=== PATIENT | female | born 1990 | race Caucasian/White ===

== ENCOUNTER → 2021-04-15 13:01 | Outpatient (BNVA) | payer BC, MEDICAID, SELFPAY | PROVIDERS: Family Provider Family Medicine; Visit Provider Obstetrics & Gynecology | DX: O09.93 Supervision of high risk pregnancy, unspecified, third trimester (principal); Z3A.00 Weeks of gestation of pregnancy not specified | CPT/HCPCS: 80307; 81000; 82950; 85027; 87086 ==

== ENCOUNTER → 2021-05-06 14:57 | Outpatient (BNVA) | payer BC, MEDICAID, SELFPAY | PROVIDERS: Family Provider Family Medicine; Visit Provider Obstetrics & Gynecology | DX: Z34.90 Encounter for supervision of normal pregnancy, unspecified, unspecified trimester (principal) | CPT/HCPCS: 81000 ==

== ENCOUNTER → 2021-05-16 13:09 | Outpatient (BNVA) | payer BC, MEDICAID, SELFPAY | PROVIDERS: Family Provider Family Medicine; Visit Provider Nurse Practitioner Women's Health | DX: O09.93 Supervision of high risk pregnancy, unspecified, third trimester (principal); O99.333 Smoking (tobacco) complicating pregnancy, third trimester; O34.219 Maternal care for unspecified type scar from previous cesarean delivery; O09.33 Supervision of pregnancy with insufficient antenatal care, third trimester; F20.9 Schizophrenia, unspecified; Z30.2 Encounter for sterilization | CPT/HCPCS: 81000 ==

== ENCOUNTER → 2021-05-23 13:22 | Outpatient (BNVA) | payer BC, MEDICAID, SELFPAY | PROVIDERS: Family Provider Family Medicine; Visit Provider Obstetrics & Gynecology | DX: O09.33 Supervision of pregnancy with insufficient antenatal care, third trimester (principal) | CPT/HCPCS: 81000; 87081 ==

== ENCOUNTER → 2021-06-02 14:33 | Outpatient (BNVA) | payer BC, MEDICAID, SELFPAY | PROVIDERS: Family Provider Family Medicine; Visit Provider Obstetrics & Gynecology | DX: Z34.80 Encounter for supervision of other normal pregnancy, unspecified trimester (principal); F20.9 Schizophrenia, unspecified | CPT/HCPCS: 81000 ==

== ENCOUNTER 2021-06-12 04:47 | Inpatient (IN) | payer BC, MEDICAID, SELFPAY ==
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
[2021-06-12] VITALS (19 sets, daily range): BP systolic 100–135; BP diastolic 49–88; PULSE 63–94; RESP 16–18; TEMP 36.2–36.6; O2SAT 97–100; BMI 29.4
[2021-06-12 05:39] LABS: Basophils # 0.1 10^3/uL (0.0-0.1); Basophils % 0.4 %; Eosinophils # 0.2 10^3/uL (0.0-0.8); Eosinophils % 1.1 %; Hematocrit 33.2 % (37.0-47.0); Hemoglobin 10.7 g/dL (11.5-15.3); Lymphocytes # 2.5 10^3/uL (0.8-4.8); Lymphocytes % 14.4 %; Mean Corpuscular HGB Conc 32.2 g/dL (30.0-36.0); Mean Corpuscular Hemoglobin 27.7 pg (28.0-34.0); Monocytes % 6.1 %; Neutrophils # 12.91 10^3/uL (1.8-7.7); Neutrophils % 75.6 %; Nucleated Red Blood Cells % 0 %; Platelet Count 312 10^3/cmm (130-400); Red Blood Count 3.86 10^6/uL (4.1-5.3); Red Cell Distribution Width 14.2 % (12.1-15.1); White Blood Count 17.1 10^3/uL (4.0-10.0)
[2021-06-12 11:44] LABS: Amphetamines Screen Urine Negative (Negative); Barbiturates Screen Urine Negative (Negative); Benzodiazepines Screen Urine Negative (Negative); Cocaine Screen Urine Negative (Negative); Opiate Screen Urine Negative (Negative); PCP Screen Urine Negative (Negative); THC Screen Urine Negative (Negative)
[2021-06-12] MEDS: lactated ringers 1,000 ML 999 ML IV (12:05)
[2021-06-12] MEDS: famotidine 20 mg/2 mL INJ IVP (12:43)
[2021-06-12] MEDS: metoclopramide 5 mg/mL SDV 2 mL 10 MG IVP ×2 (12:43→22:43)
[2021-06-12] MEDS: citric acid-sodium citrate 30 mL UDC PO (12:43)
--- NOTE | 2021-06-12 13:14 | PC.NURSE ---
Pt ambulated to OB OR 2. Pt tolerated well.
--- NOTE | 2021-06-12 13:37 | P.ANESUD_ITS ---
Pre-Anesthetic Update Pre-Anesthetic Assessment: Date of Surgery/Procedure: 06/12/21 Preop Daphnie gnosis: cehpalopelvic disproportion Proposed Procedure: Operation Date: 06/12/21 07:00 Proposed Procedures p Section Repeat With Tubal(Not Applicable) - Cristhian Simon MD Any changes to Pre-Anesthetic Assessment?: No Last Intake: Intake Last Liquid Date 06/11/21 Last Liquid Time 22:30 Last Solid Date 06/11/21 Last Solid Time 22:30 Labs Last 48hrs: Laboratory Results - last 48 hr 06/12/21 06/12/21 06/12/21 05:24 05:24 10:45 WBC 17.1 H RBC 3.86 L Hgb 10.7 L Hct 33.2 L MCV 86.0 MCH 27.7 L MCHC 32.2 RDW 14.2 Plt Count 312 MPV 11.0 H Neut % (Auto) 75.6 Lymph % (Auto) 14.4 [place] % (Auto) 6.1 Eos % (Auto) 1.1 Baso % (Auto) 0.4 Neut # (Auto) 12.91 H Lymph # (Auto) 2.5 [place] # (Auto) 1.0 H Eos # (Auto) 0.2 Baso # (Auto) 0.1 Nucleated RBC % (a uto) 0 Nucleated RBCs # 0.0 Urine Opiates Scre en Negative Ur Barbiturates Sc reen Negative Ur Phencyclidine S crn Negative Ur Amphetamines Sc reen Negative U Benzodiazepines Scrn Negative Urine Cocaine Scre en Negative U Marijuana (THC) Screen Negative Blood Type A Positive Rho(D) Type Positive / 4+ Vitals: Pulse Rate 85 06/12/21 12:51 Pulse Rhythm 06/12/21 05:04 Pulse Strength 3+ Normal 06/12/21 05:04 Respiratory Effort Non-Labored 06/12/21 05:04 Respiratory Depth Normal 06/12/21 05:04 Respiratory Patter n 06/12/21 05:04 Blood Pressure 122/58 06/12/21 12:51 Oxygen Delivery Me thod 06/12/21 05:04 Exam: Pre-Anes Outpt Exam: alert, oriented x 3, clear to auscultation bilaterally and regular rate & rhythm Cardiac Studies: No Data to Display
--- NOTE | 2021-06-12 14:29 | P.OP_ITS ---
Operative Report Date of procedure: June 12, 2021 Pre-op Diagnosis: Term , previous delivery, desires sterilization Post-op diagnosis: same Procedure Done: Repeat low transverse delivery Bilateral salpingectomy via fulguration Specimens removed/disposition: Left and right fallopian tubes Surgeon: Cristhian Simon MD Anesthesia: None (Spinal) Estimated blood loss (mL): 800 IV fluids (mL): 1,500 Urine output (mL): 175 Complications: None Findings: Male Apgars 8/9, weight 3544g Condition: stable Disposition: PACU Brief History: Mrs. Cordova 31-year-old female with term at 40 weeks with 2 previous deliveries Procedure: After assuring informed consent, the patient was taken to the operating room and anesthesia was initiated. She was placed in the dorsal supine position with a left lateral tilt. The abdomen was prepped and draped in the usual sterile manner. A time-out procedure was performed. A Pfannenstiel skin incision was made with the scalpel and carried through to the underlying layer of fascia with the Bovie. The fascia was nicked in the midline and the incision extended laterally with the Jade scissors. The superior aspect of the fascial incision was then grasped with Mary clamps and elevated and the underlying rectus muscle dissected off bluntly and sharp with jade scissors dense adhesions. Attention was then turned to the inferior aspect of the incision which, in similar fashion, was grasped and tented up with Mary clamps and the rectus muscle dissected bluntly. The rectus muscles were then in the midline and the peritoneum identified, tented up and entered sharply with Metzenbaum scissors. The peritoneal incision was then extended superiorly and inferiorly with good visualization of the bladder. The Negro O retractor was then inserted and the vesicouterine peritoneum identified, grasped with pickups and entered sharply with Metzenbaum scissors. This incision was then extended laterally and the bladder flap created digitally. The uterus incised in a low transverse fashion with the scalpel. The uterine incision was then extended with the bandage scissors. The was then delivered in the cephalic presentation atraumatically at 1351. The nose and the mouth were suctioned with bulb and the cord clamped and cut. The cord was normal and had three vessels. Amniotic fluid was clear. The placenta was then removed manually and the uterus exteriorized and cleared of all clots and debris. The uterine incision was repaired with 0 Vicryl in a running-locked fashion. A second layer of the same suture was used to obtain excellent hemostasis. The gutters were cleared of all clots. The left fallopian tube was identified and grasped with a Jackson clamp. The tube was then followed out to the fimbria. The fallopian tube and mesosalpinx were grasped and the underlying mesosalpinx was cauterized and cut using the [employer] device. Serial cauterization and cutting was used to separate the fallopian tube from the underlying mesosalpinx until it could be amputated cutting it approximated 2 cm from the cornua. Attention was then turned to the contralateral fallopian tube, which was removed in similar fashion. Both specimens were removed and sent to pathology. Excellent hemostasis was noted. The same procedure was performed on the opposite fallopian tube. Then the uterus was then returned to the abdomen. The rectus muscles were approximated with 3-0 chromic gut. The fascia was reapproximated with 0 Vicryl in an interrupted running fashion. The skin was closed with Insorb?s subcuticular absorbable ayleen. The Pfannenstiel incision was infiltrated with Exparel for pain management. The patient tolerated the procedure well. The sponge, lap and needle counts were correct times three.
--- NOTE | 2021-06-12 14:42 | P.PCN_ITS ---
PACU note PACU note: VSS, Good respiratory effort, report to REGULATORY COORDINATOR Post-Anesthesia Exam: awake
--- NOTE | 2021-06-12 14:42 | PM.PACU ---
PACU note PACU note: VSS, Good respiratory effort, report to MANAGER FINE DINING Post-Anesthesia Exam: awake
--- NOTE | 2021-06-12 15:00 | ANE.PACU2 ---
Inpatient post-anesthesia follow up: Airway intact: Yes Vital signs: Temperature 98.1 F Pulse Rate 83 Respiratory Rate 16 Blood Pressure 109/56 Pulse Oximetry 99 Oxygen Delivery Me thod Room Air Oxygen Flow Rate Fraction of Inspir ed Oxygen Hydration adequate: Yes Nausea and vomiting: No Mental status: Baseline
[2021-06-12] MEDS: HYDROcodone-acetaminophen 5-325 mg Tablet PO (15:49)
[2021-06-12] MEDS: dextrose 5%-lactated ringers 1,000 ML 125 ML IV (16:22)
[2021-06-12] MEDS: TRAMadol 50 mg Tablet PO (17:24)
[2021-06-12 18:05] LABS: Basophils # 0.1 10^3/uL (0.0-0.1); Basophils % 0.4 %; Eosinophils # 0.1 10^3/uL (0.0-0.8); Eosinophils % 0.5 %; Hematocrit 34.9 % (37.0-47.0); Hemoglobin 10.9 g/dL (11.5-15.3); Lymphocytes # 2.1 10^3/uL (0.8-4.8); Lymphocytes % 9.7 %; Mean Corpuscular HGB Conc 31.2 g/dL (30.0-36.0); Mean Corpuscular Hemoglobin 27.5 pg (28.0-34.0); Mean Corpuscular Volume 88.1 fL (81-99); Mean Platelet Volume 11.4 fL (7.4-10.4); Monocytes # 0.8 10^3/uL (0.2-0.9); Monocytes % 3.8 %; Neutrophils # 18.06 10^3/uL (1.8-7.7); Neutrophils % 84.4 %; Nucleated Red Blood Cells % 0 %; Platelet Count 329 10^3/cmm (130-400); Red Blood Count 3.96 10^6/uL (4.1-5.3); Red Cell Distribution Width 14.2 % (12.1-15.1); White Blood Count 21.4 10^3/uL (4.0-10.0)
[2021-06-12] MEDS: ondansetron 2 mg/ML SDV 2 mL 4 MG IVP ×2 (18:21→21:28)
[2021-06-12] MEDS: ketorolac 30 mg/mL INJ IVP (20:14)
[2021-06-12] MEDS: lanolin oint 7 gm 1 APPLIC TOPICAL (20:15)
[2021-06-12] MEDS: nicotine 14 mg Patch 1 PATCH TRANSDERMA (20:15)
[2021-06-13 04:12] LABS: Hematocrit 31.1 % (37.0-47.0); Hemoglobin 9.7 g/dL (11.5-15.3); Mean Corpuscular HGB Conc 31.2 g/dL (30.0-36.0); Mean Corpuscular Hemoglobin 27.5 pg (28.0-34.0); Mean Corpuscular Volume 88.1 fL (81-99); Mean Platelet Volume 11.5 fL (7.4-10.4); Platelet Count 274 10^3/cmm (130-400); Red Blood Count 3.53 10^6/uL (4.1-5.3); Red Cell Distribution Width 14.2 % (12.1-15.1); White Blood Count 14.8 10^3/uL (4.0-10.0)
[2021-06-13 05:23] VITALS: BP 109/56; PULSE 83; RESP 16; TEMP 36.7
[2021-06-13] MEDS: ibuprofen 800 mg tablet PO ×3 (06:18→21:16)
[2021-06-13] MEDS: ferrous sulfate EC 325 mg Tablet PO ×2 (08:45→18:18)
[2021-06-13] MEDS: BuSPIRONE 10 mg Tablet 20 MG PO ×2 (08:46→18:19)
[2021-06-13] MEDS: prenatal vitamin Capsule 1 CAP PO (08:46)
[2021-06-13] MEDS: docusate sodium 100 mg Capsule PO ×2 (08:46→18:19)
[2021-06-13] MEDS: lamoTRIgine 25 mg Tablet PO ×2 (08:46→18:19)
[2021-06-13] MEDS: valACYclovir 1,000 mg Tablet 1000 MG PO ×2 (08:47→18:20)
[2021-06-13 10:30] VITALS: BP 124/78; PULSE 74; RESP 16; TEMP 36.6; O2SAT 100
[2021-06-13] MEDS: HYDROcodone-acetaminophen 5-325 mg Tablet PO ×3 (11:51→21:52)
--- NOTE | 2021-06-13 12:48 | PC.NURSE ---
Pt reports her nicotine patch came off at 11 last night. This nurse found patch stuck to arm of chair. Pt requests another patch or to go outside to smoke. This nurse discussed with pt that because she has an IV she will not be able to leave the floor. Since the nicotine patch was only on for around 3 hours, this nurse administered another 14 mg Nicotine patch to pts right shoulder blade at 1245.
--- NOTE | 2021-06-13 12:49 | PM.OBGYPN ---
PRECISION INSPECTOR Subjective Subjective: Interval history: Mrs. Cordova 31-year-old female G3, P2 with EGA at 40 weeks admitted for repeat delivery. Refers doing well Labor: Amniotic Membrane Status: Intact Monitor Mode: External Contraction Pattern: Rare Vitals/I&O/Wt Last Vital Signs Temp 98.5 F 06/14/21 09:18 Pulse 74 06/14/21 09:18 Resp 18 06/14/21 09:18 BP 109/67 06/14/21 09:18 Pulse Ox 96 06/14/21 09:18 Physical Exam Narrative: EXAM NARRATIVE: GA; alert and oriented x 3 HEENT: normal Breasts: engorged Nipples - skin intact Lungs; clear to auscultation Heart: regular rhythm, no murmurs. Abd: Appropriately tender. BS+. Uterine fundus below umbilicus. No Fundal Tenderness. Perineum: normal lochia. Extremities: no edema, no cyanosis, no tenderness. Urinary Catheter Management^: Lieberman: Cath Placed During This Visit: yes, but has since been removed by the nurse Reason for Continuing Indwelling Catheter: Perioperative Use in Selected Surgeries Urinary Catheter Date of Insertion: 06/12/21 Urinary Catheter Time of Insertion: 13:32 Date Urinary Catheter Removed: 06/13/21 Time Urinary Catheter Discontinued: 06:45 Data : 06/13/21 03:45 A&P Assessment and plan (1) Status post delivery: Mrs. Cordova is status post repeat delivery and bilateral tubal salpingectomy sterilization postoperative day 1. She is afebrile and hemodynamically stable. Tolerating diet well. Ambulating without difficulty. Passing flatus. Status: Acute Attestations Medical Necessity Statement*: In my professional opinion per admitting diagnosis. Coding Level of Care Code Acute Workers Compensation Claims Assistant for Chg Fwd Diagnoses Status post delivery Z98.891
[2021-06-13] MEDS: ondansetron 2 mg/ML SDV 2 mL 4 MG IVP (14:32)
[2021-06-13 18:21] VITALS: BP 119/58; PULSE 70; RESP 16; TEMP 36.6; O2SAT 98
[2021-06-13 21:14] VITALS: BP 124/74; PULSE 71; RESP 17; TEMP 36.8; O2SAT 98
[2021-06-13] MEDS: hyDROXYzine 25 mg Capsule 50 MG PO (22:58)
[2021-06-14] MEDS: HYDROcodone-acetaminophen 5-325 mg Tablet PO ×3 (01:59→12:11)
[2021-06-14 04:00] VITALS: BP 110/73; PULSE 67; RESP 17; TEMP 36.9; O2SAT 97
[2021-06-14] MEDS: prenatal vitamin Capsule 1 CAP PO (07:57)
[2021-06-14] MEDS: BuSPIRONE 10 mg Tablet 20 MG PO (09:12)
[2021-06-14] MEDS: docusate sodium 100 mg Capsule PO (09:12)
[2021-06-14] MEDS: ibuprofen 800 mg tablet PO (09:13)
[2021-06-14] MEDS: lamoTRIgine 25 mg Tablet PO (09:13)
[2021-06-14] MEDS: valACYclovir 1,000 mg Tablet 1000 MG PO (09:13)
[2021-06-14 09:18] VITALS: BP 109/67; PULSE 74; RESP 18; TEMP 36.9; O2SAT 96
--- NOTE | 2021-06-14 10:40 | PM.OBGYDC ---
Discharge Providers BIOMASS POWER PLANT SUPERINTENDENT Date of Admission: 06/12/21 04:47 Date of Discharge: 06/14/21 Attending Provider at Admission: Cristhian Simon MD Attending Provider at Discharge: Cristhian Simon MD Reason for Visit Reason for Visit: pavan 06/11/21 Hospital Course Hospital Course Ms. Cordova is a 31 y/o with an uncertain LMP and PAVAN of 06/18/2021 based on second trimester ultrasound admitted for repeat cesarena delivery and sterilization at 40 weeks. The procedures were performed without complications. Post op observation recovery was uneventful. She is tolerating diet well. Ambulating without difficulty. Incision clean and dry. Passing flatus. She is afebrile and hemodynamically stable. Information Peripartum Data: Infant Delivery Method: Physical Exam Narrative: EXAM NARRATIVE: GA: Alert and oriented ?3. HEENT: WNL. Heart: Regular rate and rhythm. Breasts: engorged Nipples - skin intact Lungs: Clear to auscultation bilaterally. Abdomen: Bowel sounds present, nontender, minimal tenderness, incision clean and dry, no redness, pain or edema. BOARD CERTIFIED ORTHODONTIST: normal lochia. Extremities: No edema, no cyanosis, no calves pain. Urinary Catheter Management^: Lieberman: Cath Placed During This Visit: yes, but has since been removed by the nurse Reason for Continuing Indwelling Catheter: Perioperative Use in Selected Surgeries Urinary Catheter Date of Insertion: 06/12/21 Urinary Catheter Time of Insertion: 13:32 Date Urinary Catheter Removed: 06/13/21 Time Urinary Catheter Discontinued: 06:45 Discharge Data Vitals: Last Vital Signs Temp 98.5 F 06/14/21 09:18 Pulse 74 06/14/21 09:18 Resp 18 06/14/21 09:18 BP 109/67 06/14/21 09:18 Pulse Ox 96 06/14/21 09:18 Discharge Plan Discharge Patient Disposition: Home Condition: Stable Prescriptions: New hydrocodone-acetaminophen 5-325 mg tablet 1 tab PO Q4H PRN (Reason: pain) Qty: 30 RF: 0 acetaminophen 325 mg capsule 325 mg PO Q4H PRN (Reason: fever or pain) Qty: 60 RF: 0 docusate sodium [Colace] 100 mg capsule 100 mg PO BID Qty: 60 RF: 0 ferrous sulfate [Iron (ferrous sulfate)] 325 mg (65 mg iron) tablet 325 mg PO BID Qty: 60 RF: 0 ibuprofen 800 mg tablet 800 mg PO TID PRN (Reason: pain) Qty: 60 RF: 0 Continued valacyclovir [Valtrex] 1 gram tablet 1,000 mg PO DAILY RF: 0 buspirone 10 mg tablet 20 mg PO BID RF: 0 lamotrigine 25 mg tablet 25 mg PO BID RF: 0 prenat.vits,mike,[id number] Tablet 1 tab PO DAILY RF: 0 Discharge Orders: Discharge Order (Routine); Ordered 06/14/21 Ordered By: Cristhian Simon Referrals: Cristhian Simon MD [Physician] - 2 weeks (c/s incision check) Discharge Diet: Usual diet Discharge Activity: Increase activity as tolerated Patient Instructions: Section (DC), Depression (GEN), Sponge Bathing Your Baby (GEN), Tub Bathing Your Baby (GEN), Your Bynum's Appearance (GEN), Caring for Your Baby (GEN), Breast Care for the Breast Feeding Mother (GEN), Sudden Syndrome (GEN), Caring for Your Breastfed Baby (GEN), Wound Dehiscence (GEN), Postoperative Bleeding (GEN), Bleeding (GEN), OB Discharge Report, OB Care at Home, Opioid Safety, OB Home Care, Female Sterilization Activity Restrictions/Additional Instructions: 1. Please call [facility] [place] [facility] on next working day to make your post-operative appointment in 2 weeks. 2. Please stay home until you come back to the clinic on first post-operative check up. 3. Please follow instructions on your medications CAREFULLY. 4. If you have abdominal incision, do not cover it unless dressing is necessary because of drainage. OK to shower, but avoid bath. Leave steri-strips until they fall off. If they are still on one week after surgery, you may remove them. 5. If you had vaginal surgery or vaginal repair, Dr. Simon may instruct you to take SITZ bath. 6. Yellow, blood tinged odorous vaginal discharge is usually normal after hysterectomy or vaginal surgeries. 7. No sexual intercourse, tampons, or douches until you are completely released from the post-operative care. 8. Avoid constipation by eating right and maybe using some Metamucil or Milk of Magnesia. 9. All prescription refills are given during the working hours. Please do no wait till it runs out. Call the clinic at [phone] before your medication runs out. The clinic will get in touch with your doctor to prescribe medications if necessary. 10. Please remain within 40 mile radius from our hospital because emergencies do happen now and then during the post-operative period. 11. If you have stairs at home, take one step at a time slowly and minimize the number of trips. It helps to stay in one floor for the next few days. No lifting except what you can lift by one hand until you are released from the post-operative care. 12. Driving is discouraged until you are well healed. It may be 3-4 weeks before you feel strong enough to drive. You should be able to turn and look through the rear window without pain and you should be able to push the brake pedal very hard without pain before you drive. No fast rules, but SAFETY should be your primary concern. DO NOT drive if you are on sedating medications such as narcotics. 13. Call the clinic (during working hours) to make urgent appointment or go to the Emergency room, if any of the following occurs: i. Vaginal bleeding becomes heavy, more than a period. ii. Incision becomes red and sore, or drains pus. iii. Your temperature is over 100.4 or you have chill. iv. IV site becomes red and swollen (a little ``knot?? is usually OK) v. Persistent nausea and vomiting vi. Persistent constipation or diarrhea vii. Rash or allergic reaction to medications. Discharge Attestations BIOMASS POWER PLANT SUPERINTENDENT Time Spent in Discharge Care*: greater than 30 min Coding Level of Care Code Acute Marketing Automation Specialist for Sheri Zapata
--- NOTE | 2021-06-14 12:57 | PC.NURSE ---
THIS SUPPORTIVE EMPLOYMENT CASE MANAGER CALLED [facility] AND THEY TOLD US THAT THEY CLOSE AT 1, I WAS ON SPEAKER PHONE AND THE PATIENT SAID THAT SHE WOULD TRY AND GET SOMEONE OVER TO PICK THEM UP BUT EVEN AFTER ASKING THEY WERE NOT WILLING TO STAY OPEN PAST 1 FOR THEM.
--- NOTE | 2021-06-14 13:00 | PC.NURSE ---
1250 THIS CLINICAL EDUCATION ASSISTANT HAD TOLD THEM WHEN THEY GOT BABY IN [place] TO PUT RDA LIGHT AND THAT SHE WOULD COME ESCORT THEM OUT. THIS CLINICAL EDUCATION ASSISTANT WAS HELPING A PATIENT AT THE MAIN DESK AND TRYING TO LET SCREEN TWO GENTLEMAN IN AND THEY LEFT CARRYING BABY IN CARSEAT. THIS CLINICAL EDUCATION ASSISTANT DID NOT TRY TO STOP THEM BECAUSE I THOUGHT THAT HER NURSE HAD OK'D THEM FOR DISCHARGE. THIS CLINICAL EDUCATION ASSISTANT DID GO OVER HOME CARE INSTRUCITONS WITH THEM PRIOR TO THEM WALKING OUT.
--- NOTE | 2021-06-16 16:55 | PC.RESP ---
Smoking Cessation information sent to patient.
== END 2021-06-14 12:50 | disposition home or self-care (01) | DRG 785 ==
PROVIDERS: Admitting Provider Obstetrics & Gynecology; Visit Provider Obstetrics & Gynecology
PROC: 10D00Z1 Extraction of Products of Conception, Low, Open Approach (ICD-10-PCS; CPT 59514; principal; 2021-06-12 07:00)
DX: O34.211 Maternal care for low transverse scar from previous cesarean delivery (principal); O99.334 Smoking (tobacco) complicating childbirth; F17.210 Nicotine dependence, cigarettes, uncomplicated; O99.344 Other mental disorders complicating childbirth; F20.9 Schizophrenia, unspecified; Z30.2 Encounter for sterilization; Z3A.40 40 weeks gestation of pregnancy; Z37.0 Single live birth
CPT/HCPCS: 36415; 51702; 58611; 59025; 59409; 80306; 81000; 85025; 85027; 86900; 87635; 88302; 96372; 96374; 96375; C9290; J0690; J1885; J2274; J2405; J2765; J3010; J3490; J7030

== ENCOUNTER 2021-10-21 16:45 | Emergency (ER) | payer BC, MEDICAID, SELFPAY ==
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
[2021-10-21 18:24] VITALS: BP 114/71; PULSE 71; RESP 18; TEMP 36.7; O2SAT 100; BMI 23.3
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
[2021-10-21 19:17] VITALS: RESP 21
[2021-10-21 19:21] LABS: Basophils # 0.1 10^3/uL (0.0-0.1); Basophils % 0.6 %; Eosinophils # 0.2 10^3/uL (0.0-0.8); Hematocrit 38.3 % (37.0-47.0); Hemoglobin 12.5 g/dL (11.5-15.3); Lymphocytes # 2.7 10^3/uL (0.8-4.8); Lymphocytes % 27.8 %; Mean Corpuscular HGB Conc 32.6 g/dL (30.0-36.0); Mean Corpuscular Volume 88.9 fl (81-99); Mean Platelet Volume 10.9 fL (7.4-10.4); Monocytes # 0.7 10^3/uL (0.2-0.9); Monocytes % 7.2 %; Neutrophils # 5.98 10^3/uL (1.8-7.7); Neutrophils % 62.1 %; Nucleated Red Blood Cells % 0 %; Platelet Count 340 10^3/cmm (130-400); Red Blood Count 4.31 10^6/uL (4.1-5.3); White Blood Count 9.6 10^3/uL (4.0-10.0)
[2021-10-21] MEDS: HYDROcodone-acetaminophen 7.5-325 mg Tablet 1 TAB PO (19:26)
[2021-10-21] MEDS: metroNIDAZOLE 500 MG Tablet 2000 MG PO (19:30)
[2021-10-21] MEDS: ondansetron 2 mg/ML SDV 2 mL 4 MG IVP (19:30)
[2021-10-21 19:38] LABS: Alanine Aminotransferase 13 U/L (0-33); Albumin Level 4.1 g/dL (3.5-5.2); Alkaline Phosphatase 68 IU/L (35-105); Anion Gap 16.2 (5-19); Aspartate Amino Transferase 11 U/L (0-32); Blood Urea Nitrogen 11 mg/dL (6-20); Calcium 8.6 mg/dL (8.5-10.5); Carbon Dioxide 22 mmol/L (22-29); Chloride 107 mmol/L (98-107); Glomerular Filtration Rate 117.4 mL/min (90-130); Glucose 86 mg/dL (65-115); Osmolality Calculated 291 mOsm/kg (285-295); Potassium 4.2 mmol/L (3.5-5.1); Sodium 141 mmol/L (136-145); Total Bilirubin 0.2 mg/dL (0.15-1.2); Total Protein 6.1 g/dL (6.6-8.7)
[2021-10-21] MEDS: iohexol 300 mg/mL 100 mL Btl IV (19:41)
[2021-10-21 20:06] LABS: Add Urine Microscopic? NO; Charge for UA Resulting for Rev
[2021-10-21 20:10] LABS: Bilirubin Urine Neg (Negative); Blood Urine Neg (Negative); Glucose Urine UA Norm (Normal); Ketones Urine Negative (Negative); Leukocyte Esterase Urine Negative (Negative); Nitrate Urine Negative (Negative); Protein Urine Neg (Negative); Specific Gravity, Urine 1.005 (1.005-1.030); Urine Appearance Clear (CLEAR); Urine Color Straw (Yellow); Urobilinogen Urine Norm (Negative); pH Urine 7 (5-7)
[2021-10-21 20:27] VITALS: BP 111/54; PULSE 74; RESP 17; O2SAT 97
[2021-10-21 20:54] VITALS: BP 105/66; PULSE 78; O2SAT 98
[2021-10-21 21:17] VITALS: BP 104/79; PULSE 73; RESP 18; O2SAT 95
== END 2021-10-21 21:19 | disposition home or self-care (01) ==
PROVIDERS: Emergency Provider Emergency Medicine; PCP Family Medicine
DX: T74.21XA Adult sexual abuse, confirmed, initial encounter (principal); F17.210 Nicotine dependence, cigarettes, uncomplicated
CPT/HCPCS: 74177; 80053; 81003; 85025; 87210; 87491; 87591; 96374; 99284; J0696; J2405; Q9967

== ENCOUNTER 2025-05-22 15:55 | Emergency (ER) | payer MEDICAID, SELFPAY ==
--- OUTSIDE RECORDS SUMMARY | 2022-10-24 07:00 | XMS_ITS | Continuity of Care Document ---
Author Organization [facility] Address [id number] [address] Phone Care Team Providers Care Cash Register Mechanic Name Role Phone Pepito Quinn DDS Unavailable Allergies, Adverse Reactions, Alerts Substance Reaction Status Criticality azithromycin Active No Information Medications Medication Instructions Dosage Effective Dates (start - stop) Status Comments LAMOTRIGINE (unknown strength) take 1 tablet by oral route every day Not Available - Active PROPRANOLOL HCL (unknown strength) take 1 tablet by oral route 3 times every day Not Available - Active ABILIFY (unknown strength) take 1 tablet by oral route every day Not Available - Active amoxicillin 500 mg capsule take 1 capsule by oral route every 8 hours 500 MG - Active Procedures Procedure Date Limited Oral Evaluation Problem Focused Intraoral Periapical First Film Extraction, Erupted Tooth Or Exposed Missy t (Elevati Advance Directives Directive Yes / No Effective Date File Name No Information Encounters Encounter Description Practice Location Reason(s) For Visit Diagnoses Date Provider Providers Copied on Encounter [facility], [id number], [id number], [place] tel:[phone] [facility] No Information Cheyenne Beyer. [address], [place], [id number], [place]. tel:[phone] Referring Provider: Pepito Quinn, [address] [place], [address]. tel:[phone] Family History Family Member Type Diagnosis Age At Onset No Information Payers Payer name Insurance type Covered republican ID Abebe escalona(leif aMry [id number] Social History Type Description Quantity Date Captured Comments Alcohol Use Details No Caffeine Use Details Unknown Tobacco Use Status Moderate cigarette smoker (10-19 cigs/day) Smoking Status Heavy tobacco smoker Smoking Tobacco Use Details Cigarette: No Details Available Cigarette: 0.5 Packs per day Sex Female Gender Identity Female Chief Complaint And Reason For Visit No Information Reason For Referral Reason For Referral No Information History Of Present Illness Encounter Date Complaint History Of Prese nt Illness No Information Functional Status Date Functional Assessmen t No Information Instructions Date Instruction Additional Infor mation No Information Assessments Type Assessment Date No Information Patient Care Teams Name Effective Dates (start - stop) Status Members No Information
--- OUTSIDE RECORDS SUMMARY | 2025-02-08 10:30 | XMS_ITS ---
Author Organization [facility] Address [address] [place] [address] Care Team Providers Care Quality Liaison Name Role Phone David Jesusi Bhumi [phone] REASON FOR VISIT 1 month f/u Social History Sex Assigned At : Social History Observation Description Sex Assigned At Female Encounters Encounter Location Date Provider Diagnosis [facility] [address] [address] 02/08/2025 Miri Jesus Plan Of Treatment No Information Progress Notes * Elen CORDOVA DDOB:[birth year] (35 yo F)Acc No.[id number]:02/08/2025 Patient: Heather Elen COCHRAN Provider: Umberto Jesus :1990 A ge:34 Y S ex:Female Date:02/08/2025 Address:[address] [place], [place] [address] Subjective: * Chief Complaints: * 1 . 1 month f/u. * Medical History: Objective: * Vitals: Assessment: Plan: * Treatment: * Billing Information: * Visit Code: * Procedure Codes: * Electronic signature of MARIA LUZ Lee iCM on 05/22/2025 at 04:11 PM CDT Sign off status: Pending * Provider: Umberto Jesus Date: 02/08/2025 Generated for Teresita byrd/Tirso/eTransmitting on: 05/22/2025 04:11 PM CDT
--- OUTSIDE RECORDS SUMMARY | 2025-02-19 09:50 | XMS_ITS ---
Author Organization [facility] Address [address] [place] [address] Care Team Providers Care Helper Metal Hanging Name Role Phone Miri Jesus [phone] REASON FOR VISIT needs psych meds refilled Social History Sex Assigned At : Social History Observation Description Sex Assigned At Female Encounters Encounter Location Date Provider Diagnosis [facility] [address] [address] 02/19/2025 Miri Jesus Plan Of Treatment No Information Progress Notes * Elen CORDOVA DDOB:[birth year] (35 yo F)Acc No.[id number]:02/19/2025 Patient: Heather Elen COCHRAN Provider: Umberto Jesus :1990 A ge:34 Y S ex:Female Date:02/19/2025 Address:[address] [place], [place] [id number] Subjective: * Chief Complaints: * 1 . Needs psych meds refilled. * Medical History: Objective: * Vitals: Assessment: Plan: * Treatment: * Billing Information: * Visit Code: * Procedure Codes: * Electronic signature of ALIYA Lee i on 05/22/2025 at 04:11 PM CDT Sign off status: Pending * Provider: Umberto Jesus Date: 0 02/19/2025 Generated for Teresita byrd/Tirso/eTransmitting on: 05/22/2025 04:11 PM CDT
[2025-05-22 15:55] VITALS: PULSE 101; RESP 16; TEMP 37.2; O2SAT 96
--- OUTSIDE RECORDS SUMMARY | 2025-05-22 16:11 | XMS_ITS | Encounter Summary ---
Author Organization [facility] Address [address] [place] [address] Care Team Providers Care Clinical Trainer Name Role Phone Unavailable Primary Care Provider Unavailabl e Encounter Details Date Type Department Care Team (Latest Contact Info) Description 09/02/2004 Outpatient Historical [facility] Pediatric Neurology[facility] [address] [place] [address] [place] [address] [facility] [address] [place] [address] ATTN DEFICIT W HYPERACT (Primary Dx) Social History Tobacco Use Types Packs/Day Years Used Date Smoking Tobacco: Never Assessed Comments Unknown Sex and Gender Information Value Date Recorded Sex Assigned at Not on file 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
--- OUTSIDE RECORDS SUMMARY | 2025-05-22 16:11 | XMS_ITS | Encounter Summary ---
Author Organization [facility] Address [address] [place] [address] Care Team Providers Care Farm Management Agent Name Role Phone Unavailable Primary Care Provider Unavailabl e Encounter Details Date Type Department Care Team (Latest Contact Info) Description 12/24/2003 Outpatient Historical [facility] Pediatric Neurology[facility] [address] [place] [address] [place] [address] [facility] [address] [place] [address] TENSION HEADACHE (Primary Dx); ATTN DEFICIT W HYPERACT Social History Tobacco Use Types Packs/Day Years Used Date Smoking Tobacco: Never Assessed Comments Unknown Sex and Gender Information Value Date Recorded Sex Assigned at Not on file 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
--- OUTSIDE RECORDS SUMMARY | 2025-05-22 16:11 | XMS_ITS | Clinical Summary ---
Author Organization [facility] Address [address] [place]: Epic Prelude ADT [place] [address] Care Team Providers Care Cargo And Container Inspector Name Role Phone Unavailable Primary Care Provider Unavailabl e Immunizations Immunization Administration Dates Next Due (M-M-R II/PRIORIX)(12 MO UP) MEASLES, MUMPS AND RUBELLA VIRUS VACCINE, 0.5 ML IM/SUBCUT 11/03/1995,02/12/1993 Dt Dtp Dtap Vaccine 11/03/1995, 4,05/14/1993,1992,1991 HIB, Unspecified Formulation 02/12/1993,06/29/19 91 Hepatitis B Vaccine 07/03/1996,01/03/1996,1994 IPV/OPV 11/03/1995, 4,02/12/1993,1990 Social History Tobacco Use Types Packs/Day Years Used Date Smoking Tobacco: Never Assessed Comments Unknown Sex and Gender Information Value Date Recorded Sex Assigned at Not on file 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
--- OUTSIDE RECORDS SUMMARY | 2025-05-22 16:11 | XMS_ITS | Encounter Summary ---
Author Organization [facility] Address [address] [place] [address] Care Team Providers Care Insulation Cutter And Former Name Role Phone Unavailable Primary Care Provider Unavailabl e Reason for Visit * Reason Comments Office Visit: Converted Data Conversion Encounter Details Date Type Department Care Team (Late st Contact Info) Description 05/16/2024 [facility] [address] [place] [address] Default, Jvc Provider [place] Social History Tobacco Use Types Packs/Day Years Used Date Smoking Tobacco: Never Assessed Social Connections Answer Date Recorded Social Connections and Isolation 0 03/01/2024 Financial Resource Strain Answer Date R ecorded Financial Resource Strain 0 2023 Stress Answer Date Recorded Stress 0 03/01/2024 Physical Activity Answer Date Recorded Physical Activity 0 03/01/2024 Food Insecurity Answer Date Recorded Food 0 03/01/2024 Transportation Needs Answer Date Record ed Transportation 0 03/01/2024 Housing Stability Answer Date Recorded Housing 0 03/01/2024 Safety and Environment Answer Date Sonido rded Safety 0 03/01/2024 Utilities Answer Date Recorded Utilities 0 03/01/2024 Employment Answer Date Recorded Employment 0 03/01/2024 Comments Unknown Sex and Gender Information Value Date Recorded Sex Assigned at Not on file Legal Sex Female 5:33 PM PDT Gender Identity Female 04/28/2024 4:32 PM PDT Sexual Orientation Not on file documented as of this encounter Plan of Treatment Not on file documented as of this encounter Visit Diagnoses Not on filedocumented in this encounter
--- OUTSIDE RECORDS SUMMARY | 2025-05-22 16:11 | XMS_ITS | Encounter Summary ---
Author Organization [facility] Address [address] [place] [address] Care Team Providers Care Digital Strategy Director Name Role Phone Unavailable Primary Care Provider Unavailabl e Encounter Details Date Type Department Care Team (Latest Contact Info) Description 02/25/2004 Outpatient Historical [facility] Pediatric Neurology[facility] [address] [place] [address] [place] [address] 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
--- OUTSIDE RECORDS SUMMARY | 2025-05-22 16:11 | XMS_ITS | Patient Health Record ---
Author Organization [facility] Address [address] [address] Care Team Providers Care Model Maker Firearms Name Role Phone Miri Jesus Unavailable [phone] Allergies Allergen (clinical drug ingredient) Drug/Non Drug Allergy documented on EMR Reaction Allergy Type Onset Date Status azithromycin Azithromycin anaphylaxis Drug Allergy Active lactose Lactose (Intolerance) stomach upset Drug Allergy Active Reason For Referral Reason consult please Diagnosis 1 Borderline personali ty disorder (F60.3) [facility] Referring Provider First Name Miri Referring Provider Last Name Referring Provider [facility] Referred Provider KELLY CAIN General Notes Sharron Magallanes 2024 04:05:15 PM >Insurance card attached. Referral faxed.Elpidio Wendy 02/05/2025 03:38:14 PM >Attempt TC to [facility]. Left message to return my call., Sharron Magallanes 02/15/2025 11:51:29 AM >TC to [facility]. Was told they've left messages 3-4 times, also speaking w/ pt's spouse and leaving a message; no returned call., Attempt TC to pt. Left message w/ their telephone number., Closing referral. Referral Priority Routine Medications Medication SIG (Take, Route, Frequency, Duration) Notes Start Date End Date Status hydrOXYzine HCl 50 MG 1 tablet as needed Orally every 6 hours; Duration: 30 days As needed Not-Taking traZODone HCl 50 MG 1 tablet at bedtime as needed Orally Once a day; Duration: 30 days Active Ibuprofen 200 MG 2 tablets Orally twice daily As needed Not-Taking busPIRone HCl 10 MG 2 tablets Orally thr ee times a day; Duration: 30 days Active Albuterol Sulfate (2.5 MG/3ML) 0.083% 3 mL as needed Inhalation every 6 hrs NotSarina hernández lamoTRIgine 100 MG 1/2 tablet Orally tw ice a day; Duration: 30 days Active ARIPiprazole 5 MG 1 tablet Orally Once a day; Duration: 30 days Active Omeprazole 20 MG 1 capsule 1/2 to 1 h our before morning meal Orally Once a day as needed; Duration: 30 days Not-Taking Citalopram Hydrobromide 20 MG 1 tablet Orally Once a day; Duration: 30 days Active Nicotine 21 MG/24HR 1 patch to skin Transdermal Once a day Not-Estela hernández Social History Tobacco Use: Social History Observation Description Date Details (start date - stop date) Current Smoker NA - NA Sex Assigned At : Social History Observation Description Sex Assigned At Female Tobacco Use/Smoking Question Answer Notes Tobacco use: current smoker How often do you smoke cigarettes? every day How many cigarettes a day do you smoke? 5 or les s How soon after you wake up do you smoke your fir st cigarette? within 5 minutes Are you interested in quitting? Ready to quit Problems Problem Type SNOMED Code ICD Code Onset Dates Problem Status W/U Status Risk Notes Problem Generalized anxiety disorder (38896715) Generalized anxiety disorder (F41.1) Active confirmed Problem Borderline personality disorder (90795320) Borderline personality disorder (F60.3) Active confirmed Problem Posttraumatic stress disorder (24167721) PTSD (post-traumatic stress disorder) (F43.10) Active confirmed Vital Signs Heart Rate 71 /min 01/08/2025 Temperature 97.5 degrees Fahrenheit 01/08/2025 Height-cm 165.1 cm 01/08/2025 Blood pressure diastolic 74 mm Hg 01/08/2025 Oximetry 97 % 01/08/2025 Weight-kg 64.5 kg 01/08/2025 Height 65 in 01/08/2025 Blood pressure systolic 130 mm Hg 01/08/2025 Weight 142.2 lbs 01/08/2025 BMI 23.66 kg/m2 01/08/2025 Encounters Encounter Location Date Provider Diagnosis Formerly [facility] [address] [place] [id number] 08/22/2024 Miri Jesus PTSD (post-traumatic stress disorder) F43.10 ; Borderline personality disorder F60.3 ; Major depressive disorder, remission status unspecified, unspecified whether recurrent F32.9 ; Schizophrenia, unspecified type F20.9 and Generalized anxiety disorder F41.[address] [address] 12/11/2024 Mirijitendra Jesus PTSD (post-traumatic stress disorder) F43.10 ; Borderline personality disorder F60.3 ; Major depressive disorder, remission status unspecified, unspecified whether recurrent F32.9 ; Schizophrenia, unspecified type F20.9 and Generalized anxiety disorder F41.[address] [address] 01/08/2025 Miri Jesus PTSD (post-traumatic stress disorder) F43.10 ; Borderline personality disorder F60.3 ; Major depressive disorder, remission status unspecified, unspecified whether recurrent F32.9 ; Schizophrenia, unspecified type F20.9 and Generalized anxiety disorder F41.[address] [address] 08/18/2024 Miri [place] [address] [address] 12/13/2024 Miri Assessments Encounter Date Diagnosis (ICD Code) Assessment Notes Treatment Notes Treatment Clinical Notes Section Notes 08/22/2024 Borderline personality disorder (ICD-10 - F60.3) 08/22/2024 PTSD (post-traumatic stress disorder) (ICD-10 - F43.10) 12/11/2024 PTSD (post-traumatic stress disorder) (ICD-10 - F43.10) 01/08/2025 PTSD (post-traumatic stress disorder) (ICD-10 - F43.10) 12/11/2024 Borderline personality disorder (ICD-10 - F60.3) 01/08/2025 Borderline personality disorder (ICD-10 - F60.3) 08/22/2024 Major depressive disorder, remission status unspecified, unspecified whether recurrent (ICD-10 - F32.9) 08/22/2024 Schizophrenia, unspecified type (ICD-10 - F20.9) 12/11/2024 Major depressive disorder, remission status unspecified, unspecified whether recurrent (ICD-10 - F32.9) 01/08/2025 Major depressive disorder, remission status unspecified, unspecified whether recurrent (ICD-10 - F32.9) 01/08/2025 Schizophrenia, unspecified type (ICD-10 - F20.9) 08/22/2024 Generalized anxiety disorder (ICD-10 - F41.1) 12/11/2024 Schizophrenia, unspecified type (ICD-10 - F20.9) 01/08/2025 Generalized anxiety disorder (ICD-10 - F41.1) 12/11/2024 Generalized anxiety disorder (ICD-10 - F41.1) 08/22/2024 Other follow up with [facility] 12/11/2024 Other I recommend she returns to the [facility] [place]. 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 01/08/2025 Other continue counseling with Varinder Matthew Plan Of Treatment No Information Insurance Providers Payer Name Payer Address Payer Phone Subscriber Number Group Number Insured Name Patient Relationship to Insured Coverage Start Date Coverage End Date [facility] [address] [place] [phone] [id number] Elen Medrano Self - patient is the insured Medical (General) History Medical History History ICD Code Chronic PTSD Borderline Personality Disorder Major depressive disorder Schizophrenia Generalized Anxiety Disorder Insomnia H/O gastic ulcers Nicotine dependance Hospitalization History Reason Date(Month/Year) [facility] (numerous times) [phone] [facility] 07/2024 [facility] 08/2024
--- OUTSIDE RECORDS SUMMARY | 2025-05-22 16:11 | XMS_ITS | Clinical Summary ---
Author Organization [facility] Address [address] [place] [address] Care Team Providers Care Welder Railcar Mechanic Name Role Phone Unavailable Primary Care Provider Unavailabl e Source Comments PLEASE NOTE, if this patient is a minor, it may be UNLAWFUL to discuss sensitive information that is contained in these records (such as FAMILY PLANNING, MENTAL HEALTH or SUBSTANCE ABUSE) with the minor patient's parent or other person without the patient's specific authorization.[facility] Allergies Active Allergy Reactions Criticality Noted Date Comments Azithromycin 10/24/2022 Social History Tobacco Use Types Packs/Day Years Used Date Smoking Tobacco: Never Assessed Social Connections Answer Date Recorded Connectedness 0 07/24/2024 Financial Resource Strain Answer Date R ecorded Financial Resource Strain 0 2023 Stress Answer Date Recorded Stress 0 03/01/2024 Physical Activity Answer Date Recorded Physical Activity 0 03/01/2024 Food Insecurity Answer Date Recorded Food 0 08/03/2024 Transportation Needs Answer Date Record ed Transportation 0 03/01/2024 Housing Stability Answer Date Recorded Housing 0 03/01/2024 Safety and Environment Answer Date Sonido rded Safety 0 03/01/2024 Utilities Answer Date Recorded Utilities 0 03/01/2024 Employment Answer Date Recorded Stress 0 07/24/2024 Comments Unknown Sex and Gender Information Value Date Recorded Sex Assigned at Not on file Legal Sex Female 5:33 PM PDT Gender Identity Female 04/28/2024 4:32 PM PDT Sexual Orientation Not on file Plan of Treatment Health Maintenance Due Date Last Done Comments Anxiety Screening 1991 HPV Screening 1991 Hepatitis C Screening 1991 Pap + HPV 1991 Tobacco Screening 1991 HIV Screening 2006 Relationship Safety Screening/Counseling 2006 Hypertension Screening (#1) 2009 Imm-DTaP/Tdap/Td (1 - Tdap) 2010 Imm-Hepatitis B (1 of 3 - 19+ 3-dose series) 0 Cervical Cancer Screening 02/22/2012 Pap Smear 02/22/2012 Les-SDEKS-05 (2023- season) 2024 Alcohol and Drug Screen 11/08/2024 Depression Annual Screen 11/08/2024 Imm-Influenza (#1) 2025 Cervical Ablation/Cold-Knife Conization Discontinued Cervical Cryotherapy Discontinued Colposcopy Discontinued Endometrial Biopsy Discontinued Excision/Leep Discontinued HPV Genotyping Discontinued Vaginal Pap Discontinued Vulvoscopy Discontinued
--- OUTSIDE RECORDS SUMMARY | 2025-05-22 16:12 | XMS_ITS | Encounter Summary ---
Author Organization [facility] Address [address] [place] [address] Care Team Providers Care Bioinformatics Specialist Name Role Phone Unavailable Primary Care Provider Unavailabl e Encounter Details Date Type Department Care Team (Late st Contact Info) Description 07/23/2003 Outpatient Historical [facility] [address] [place] [address] Urvashi Kinney, PAClaudio [address] [place] [address] [facility] ALLRG CONJUNCTIV NEC (Primary Dx) Social History Tobacco Use Types Packs/Day Years Used Date Smoking Tobacco: Never Assessed Comments Unknown Sex and Gender Information Value Date Recorded Sex Assigned at Not on file Legal Sex Female 3:59 AM PROPERTY SPECIALIST Gender Identity Not on file Sexual Orientation Not on file documented as of this encounter Plan of Treatment Not on file documented as of this encounter Visit Diagnoses Diagnosis Other chronic allergic conjunctivitis- Primary documented in this encounter
--- OUTSIDE RECORDS SUMMARY | 2025-05-22 16:12 | XMS_ITS | Patient Health Record ---
Author Organization [facility] Address [address] [place] [address] Care Team Providers Care Hides And Skins Colorer Name Role Phone Amber BOYD, [facility] Primary Care Provider U Terry Jaimes Unavailable [phone] EDIN BILLY Unavailable Unavailable Reason For Referral No Information Medications Medication SIG (Take, Route, Fr equency, Duration) Notes Start Date End Date Status Valtrex 1 GM Tablet 1 tablet Orally Once a day; Duration: 30 days 02/20/2021 Active Problems Problem Type SNOMED Code ICD Code Onset Dates Problem Status W/U Status Risk Notes Problem state of fetus, 2nd trimester (84373874) Encounter for supervision of normal , unspecified, second trimester (Z34.92) Active confirm Problem Schizophrenia (45006793) Schizophrenia, unspecified (F20.9) Active confirmed Problem Severe recurrent major depression with psychotic features (59724885) Major depressive disorder, recurrent, 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) Active confirmed Problem Borderline personality disorder (01800935) Borderline personality disorder (F60.3) Active confirmed Problem Anxiety (76247958) Anxiety (F41.9) Active confi rmed Problem Herpes simplex viral infection (17122831) Herpes (B00.9) Active confirmed Problem Posttraumatic stress disorder (77110346) Post traumatic stress disorder (PTSD) (F43.10) Active confirmed Problem Insomnia (650710224) Insomnia (G47.00) Active confirmed Problem Body mass index 25-29 - overweight (245856797) BMI 28.0-28.9,adult (Z68.28) Active confirmed Problem Methamphetamine abuse (076319265) Methamphetamine abuse (F15.10) Active confirmed Problem Polysubstance abuse (056512318) Polysubstance abuse (F19.10) Active confirmed Problem Cannabis abuse (09764940) Cannabis abuse (F12.10) Active confirmed Problem Stimulant abuse (809983067) Stimulant abuse (F15.10) Active confirmed Problem Hx of substance abuse (F19.11) Active confirmed Problem Major depression, single episode (76597752) Major depressive episode (F32.9) Active confirmed Plan Of Treatment No Information
[2025-05-22 16:28] LABS: Hematocrit 41.8 % (36-47); Hemoglobin 13.60 g/dL (11.27-16.99); Mean Corpuscular HGB Conc 32.5 g/dL (30-55); Mean Corpuscular Hemoglobin 30.7 pg (27-33); Mean Corpuscular Volume 94.4 fl (85-98); Nucleated Red Blood Cells % 0 %; Platelet Count 259 10^3/cmm (157-399); Red Blood Count 4.43 10^6/uL (3.85-5.65); White Blood Count 9.81 10^3/uL (3.29-11.43)
[2025-05-22 16:57] LABS: Alanine Aminotransferase 13 U/L (0-33); Albumin Level 4.4 g/dL (3.5-5.2); Alkaline Phosphatase 81 U/L (35-105); Anion Gap 16.3 (5-19); Aspartate Amino Transferase 14 U/L (0-32); Blood Urea Nitrogen 11 mg/dL (6-20); Calcium 9.2 mg/dL (8.5-10.5); Carbon Dioxide 24 mmol/L (22-29); Chloride 103 mmol/L (98-107); Creatinine Clr Calc Pharmacy 99.8651; Globulin 2.9 g/dL (1.3-4.6); Glucose 88 mg/dL (65-115); Osmolality Calculated 287 mOsm/kg (285-295); Potassium 4.3 mmol/L (3.5-5.1); Sodium 139 mmol/L (136-145); Total Protein 7.3 g/dL (6.6-8.7)
--- NOTE | 2025-05-25 00:16 | ED_ITS ---
HPI - Recheck/Abnormal Lab/Rx 2 General: Chief Complaint: Recheck/Abnormal Lab/Rx Stated Complaint: + preg test, had tubes tied in 2020 Time Seen by Provider: 05/22/25 16:26 History of Present Illness: 35-year-old female patient presents to [facility] emergency department for a test check. Patient states that she had several positive test at home but she has had her tubes tied and she is concerned regarding these findings. Patient denies any complaints. Patient does not have any abdominal pain no vaginal pain no vaginal bleeding no fevers. Related Data Home Medications ?Medication ?Instructions ?Recorded ?Confirmed buspirone 10 mg tablet 20 mg PO BID 04/15/21 lamotrigine 25 mg tablet 25 mg PO BID 04/15/21 prenat.vits,mike,zje-wplq-jjjqi 1 tab PO DAILY 04/15/21 06/12/21 valacyclovir 1 gram tablet 1,000 mg PO DAILY 04/15/21 06/12/21 (Valtrex) Previous Rx's ?Medication ?Instructions ?Recorded acetaminophen 325 mg capsule 325 mg PO Q4H PRN fever o r pain 06/14/21 #60 caps docusate sodium 100 mg capsule 100 mg PO BID #60 caps 06/14/21 (Colace) ferrous sulfate 325 mg (65 mg 325 mg PO BID #60 tabs 0 06/14/21 iron) tablet (Iron (ferrous sulfate)) ibuprofen 800 mg tablet 800 mg PO TID PRN pain #60 t abs 06/14/21 hydrocodone 5 mg-acetaminophen 325 1 tab PO Q4H PRN pa in 7 days #20 06/20/21 mg tablet tabs Allergies Allergy/AdvReac Type Severity Reaction Status Date / Time azithromycin Allergy Severe hives, Verified 06/09/21 11:34 throat swells Review of Systems 2 General: Reports: 10 or more systems reviewed and unremarkable except in HPI and below PFSH ED 2 PFSH: Medical History (Updated 05/22/25 @ 17:37 by Karin Rosales NP) Schizophrenia Surgical History H/O section x2 Family History Father Diabetes Heart disease Grandfather Diabetes maternal and paternal Grandmother Breast cancer paternal, onset unknown Denies family history of Colon cancer Ovarian cancer Clotting disorder Hyperlipidemia Anesthesia complication Bleeding disorder Hypertension Uterine cancer Thyroid disease Stroke Social History Smoking and tobacco/nicotine status: current every day tobacco/nicotine user cigarettes Packs smoked per day: 0.5 Alcohol intake: never Substance/Drug Use: current Substance/Drug use frequency: Special occassions/opportunity only Other substance/drug use details: marijuana-- last use mid May Physical Exam 2 Const: COMMON NORMALS: no acute distress, patient oriented x3 and healthy appearing HENMT: COMMON NORMALS: normocephalic and atraumatic HEAD & SCALP: n ormocephalic and atraumatic Eye: COMMON NORMALS: Equal, round and reactive pupils present and EOMs intact bilaterally PUPIL: Yes Equal, round and reactive pupils present Neck/C-Spine: COMMON NORMALS: full ROM and supple Chest: COMMONS NORMALS: normal inspection of the chest and normal palpation of entire chest wall Resp: COMMON NORMALS: normal respiratory effort, No retractions, No use of accessory muscles and clear to auscultation bilaterally AUSCULTATION: clear to auscultation bilaterally Cardio: COMMON NORMALS: regular rate, regular rhythm and No murmurs present (Cardio) RATE: regular rate RHYTHM: regular rhythm GI: COMMON NORMALS: Normal to inspection, nondistended, normoactive bowel sounds present, Soft to palpation, non-tender and no masses PALPATION: Yes Soft to palpation OTHER: Bruising to abdomen and left flank : OTHER: No vaginal tears slight clear discharge on exam Extremity: COMMON NORMALS: normal to inspection and full ROM Neuro: COMMON NORMALS: patient oriented x3, moves all extremities and no focal motor deficits Psych: COMMON NORMALS: mental status grossly normal, Normal thought process present and cooperative THOUGHT PROCESS: Normal thought process present Skin: COMMON NORMALS: no rashes or lesions noted and no wounds GENERAL SKIN EXAM: no rashes or lesions noted Course 2 Vital Signs: Vital signs: Vital Signs Temperature 99.0 F 05/22/25 15:55 Pulse Rate 101 H 05/22/25 15:55 Respiratory Rate 16 05/22/25 15:55 Pulse Oximetry 96 05/22/25 15:55 Oxygen Delivery Me thod Room Air 05/22/25 15:55 MDM - Recheck/Abnormal Lab/Rx Medical Decision Making 35-year-old female patient presents to the emergency department for a test check. Patient states that she had several positive test at home but she has had her tubes tied and she is concerned regarding these findings. Patient denies any complaints. Patient does not have any abdominal pain no vaginal pain no vaginal bleeding no fevers. negative test. pt is requesting to go home. Lab Data 05/22/25 16:15 05/22/25 16:15 Laboratory Results WBC 9.81 10^3/uL (3.29-11.43) 05/22/25 16:15 RBC 4.43 10^6/uL (3.85-5.65) 05/22/25 16:15 Hgb 13.60 g/dL (11.27-16.99) 05/22/25 16:15 Hct 41.8 % (36-47) 05/22/25 16:15 MCV 94.4 fl (85-98) 05/22/25 16:15 MCH 30.7 pg (27-33) 05/22/25 16:15 MCHC 32.5 g/dL (30-55) 05/22/25 16:15 RDW 12.5 % (12.1-15.1) 05/22/25 16:15 Plt Count 259 10^3/cmm (157-399) 05/22/25 16:15 MPV 10.7 fL (7.4-10.4) H 05/22/25 16:15 Neut % (Auto) 60.3 % 05/22/25 16:15 Lymph % (Auto) 30.4 % 05/22/25 16:15 [place] % (Auto) 7.3 % 05/22/25 16:15 Eos % (Auto) 1.1 % 05/22/25 16:15 Baso % (Auto) 0.6 % 05/22/25 16:15 Neut # (Auto) 5.91 10^3/uL (1.8-7.7) 05/22/25 16:15 Lymph # (Auto) 3.0 10^3/uL (0.8-4.8) 05/22/25 16:15 [place] # (Auto) 0.7 10^3/uL (0.2-0.9) 05/22/25 16:15 Eos # (Auto) 0.1 10^3/uL (0.0-0.8) 05/22/25 16:15 Baso # (Auto) 0.1 10^3/uL (0.0-0.1) 05/22/25 16:15 Nucleated RBC % (auto) 0 % 05/22/25 16:15 Nucleated RBCs # 0.0 /100WBC 05/22/25 16:15 Sodium 139 mmol/L (136-145) 05/22/25 16:15 Potassium 4.3 mmol/L (3.5-5.1) 05/22/25 16:15 Chloride 103 mmol/L (98-107) 05/22/25 16:15 Carbon Dioxide 24 mmol/L (22-29) 05/22/25 16:15 Anion Gap 16.3 (5-19) 05/22/25 16:15 BUN 11 mg/dL (6-20) 05/22/25 16:15 Creatinine 0.7 mg/dL (0.5-0.9) 05/22/25 16:15 GFR Calculation 95.8 mL/min (90-130) 05/22/25 16:15 Glucose 88 mg/dL (65-115) 05/22/25 16:15 Calculated Osmolality 287 mOsm/kg (285-295) 05/22/25 16:15 Calcium 9.2 mg/dL (8.5-10.5) 05/22/25 16:15 Total Bilirubin 0.2 mg/dL (0.15-1.2) 05/22/25 16:15 AST 14 U/L (0-32) 05/22/25 16:15 ALT 13 U/L (0-33) 05/22/25 16:15 Alkaline Phosphatase 81 U/L (35-105) 05/22/25 16:15 Total Protein 7.3 g/dL (6.6-8.7) 05/22/25 16:15 Albumin 4.4 g/dL (3.5-5.2) 05/22/25 16:15 Globulin 2.9 g/dL (1.3-4.6) 05/22/25 16:15 Ser , Semi-Qnt < 1.00 mIU/mL 05/22/25 16:15 No radiology studies performed this visit Discharge Plan Discharge Patient Disposition: Home Clinical Impression: test negative Condition: Stable Prescriptions: No Action valacyclovir [Valtrex] 1 gram tablet 1,000 mg PO DAILY buspirone 10 mg tablet 20 mg PO BID lamotrigine 25 mg tablet 25 mg PO BID prenat.vits,mike,vdp-sdgr-wzlng Tablet 1 tab PO DAILY hydrocodone-acetaminophen 5-325 mg tablet 1 tab PO Q4H PRN (Reason: pain) 7 Days Qty: 20 0RF ibuprofen 800 mg tablet 800 mg PO TID PRN (Reason: pain) Qty: 60 0RF Iron (ferrous sulfate) 325 mg (65 mg iron) tablet 325 mg PO BID Qty: 60 0RF Colace 100 mg capsule 100 mg PO BID Qty: 60 0RF acetaminophen 325 mg capsule 325 mg PO Q4H PRN (Reason: fever or pain) Qty: 60 0RF Discharge Orders: Discharge ED (Routine); Ordered 05/22/25 Ordered By: Karin Rosales Referrals: Miri Jesus FNP [Primary Care Provider, Family Practice] Discharge Diet: Advance as tolerated Discharge Activity: Resume usual activity Patient Instructions: Opioid Safety, Pain Management, Patient Portal & [place] Instructions Activity Restrictions/Additional Instructions: Your Beta HCG in the ER indicates you are not Print Language: Trinidadian Coding Level of Care Code ED Slitter Creaser Slotter Operator for Sheri Zapata
== END 2025-05-22 17:43 | disposition home or self-care (01) ==
PROVIDERS: Emergency Medicine; Family Medicine; Emergency Provider Registered Nurse; PCP Nurse Practitioner
DX: Z32.02 Encounter for pregnancy test, result negative (principal); F17.210 Nicotine dependence, cigarettes, uncomplicated
CPT/HCPCS: 36415; 80053; 84702; 85025; 99283

== ENCOUNTER 2025-07-26 13:24 | Outpatient (CLI) | payer MEDICAID, SELFPAY ==
--- NOTE | 2025-07-26 13:26 | MM_ITS ---
WS: [id number] BILATERAL 3D TOMOSYNTHESIS DIGITAL DIAGNOSTIC MAMMOGRAPHY WITH CAD CLINICAL INFORMATION: BILATERAL NIPPLE DISCHARGE/PAIN HISTORY: RIGHT breast lump COMPARISON: Baseline TECHNIQUE: Bilateral CC, MLO, and ML views. FINDINGS: The breasts are composed of heterogeneous fibroglandular density, which can limit the detection of small underlying mass lesions. Palpable marker upper outer RIGHT breast. Ultrasound described below. Unremarkable LEFT breast. ULTRASOUND BREAST RIGHT TECHNIQUE: Ultrasound right breast focused area of concern. CLINICAL INFORMATION: BILATERAL NIPPLE DISCHARGE/PAIN FINDINGS: Ultrasound RIGHT breast area of interest 11:00 position 2 cm from the nipple. Dense underlying parenchymal tissue. No suspicious lesions. Recommend annual screening mammography age 40 MM/MM diag BI tomosynthesis [id number] IMPRESSION: DENSITY: The breasts are heterogeneously dense, which may obscure small masses. BI-RADS: 2 - Benign FOLLOW UP: 1 Year Follow-up Recommend annual screening mammography age 40
== END 2025-07-26 13:25 | disposition home or self-care (01) ==
LOC: RAD 13:24
PROVIDERS: PCP Nurse Practitioner; Visit Provider Nurse Practitioner
DX: N64.4 Mastodynia (principal); R92.333 Mammographic heterogeneous density, bilateral breasts; N64.52 Nipple discharge
CPT/HCPCS: 76642; 77062; G0279